=== PATIENT | male | born 1990 | race Two or more races ===

== ENCOUNTER 2021-06-04 12:30 | Outpatient (CLI) | payer OTHER | END 2021-06-04 13:00 | disposition home or self-care (01) | LOC: PPH VACUNA 12:30 | PROVIDERS: ATTEND Emergency Medicine Pediatric Emergency Medicine | DX: Z23 Encounter for immunization (principal) ==

== ENCOUNTER 2022-03-13 11:47 | Outpatient (CLI) | payer OTHER | END 2022-03-13 11:57 | disposition home or self-care (01) | LOC: PPH VACUNA 11:47 | PROVIDERS: ATTEND Emergency Medicine Pediatric Emergency Medicine | DX: Z23 Encounter for immunization (principal) ==